=== PATIENT | female | born 1945 | race Caucasian/White ===

== ENCOUNTER 2024-10-26 18:25 | Inpatient (IN) | payer MEDICAID, MEDICARE ==
[~2024-10-26] VITALS: Ht 160 cm; Wt 64.0 kg
[2024-10-26] MEDS ORDERED: ACETAMINOPHEN 325MG TABLET PO ONE (19:45)
[2024-10-26] MEDS ORDERED: KETOROLAC 15MG/ML VIAL IV ONE (19:45)
[2024-10-26 19:58] LABS: HEMATOCRIT 38.4 % (36.0-48.0); MEAN CORPUSCULAR HEMOGLOBIN 29.9 pg (28.0-32.0); MEAN CORPUSCULAR HGB CONC 33.8 g/dL (31.0-37.0); MEAN CORPUSCULAR VOLUME 88.5 fL (81.0-99.0); PLATELET 241 x1000/uL (130-400); RED BLOOD CELL COUNT 4.34 mill/uL (4.2-5.4); RED CELL DISTRIBUTION WIDTH 13.8 % (11.6-14.6); WHITE BLOOD COUNT 8.1 x1000/uL (4.5-11.0)
[2024-10-26 20:10] LABS: CARBON DIOXIDE 24 mEq/L (21-32); CHLORIDE 104 mEq/L (98-107); POTASSIUM 4.3 mEq/L (3.5-5.1); SODIUM 138 mEq/L (136-145)
[2024-10-26 20:11] LABS: CALCIUM 9.4 mg/dL (8.7-10.4)
[2024-10-26 20:15] LABS: CREATININE 0.9 mg/dL (0.6-1.0)
[2024-10-26 20:16] LABS: GLUCOSE 266 mg/dL (70-105); UREA NITROGEN BLOOD 12 mg/dL (9-23)
[2024-10-26 20:17] LABS: ALANINE AMINOTRANSFERASE 18 IU/L (10-49)
[2024-10-26 20:18] LABS: ALBUMIN 4.2 g/dL (3.2-4.8); ASPARTATE AMINOTRANSFERASE 21 IU/L (<34); BILIRUBIN TOTAL 0.4 mg/dL (0.1-1.0); PROTEIN TOTAL 6.9 g/dL (6.0-8.3)
[2024-10-26 20:24] LABS: PARTIAL THROMBOPLASTIN TIME 26.2 sec (23.4-31.0); PROTHROMBIN TIME 10.6 sec (9.6-11.0)
[2024-10-26] MEDS ORDERED: ACETAMINOPHEN 325MG TABLET PO PRN (20:30)
[2024-10-26] MEDS ORDERED: MAGNESIUM/ALUMINUM HYDROXIDE/SIMETHICONE 30ML UDC PO PRN (20:30)
[2024-10-26] MEDS ORDERED: CLONIDINE 0.1MG TABLET PO PRN (20:30)
[2024-10-26] MEDS ORDERED: DOCUSATE SODIUM 100MG CAPSULE PO PRN (20:30)
[2024-10-26] MEDS ORDERED: DEXTROSE 50% WATER 50ML SYRINGE IV PRN (20:30)
[2024-10-26] MEDS ORDERED: IPRATROPIUM/ALBUTEROL 0.5-3(2.5)MG/3ML NEB HHN PRN (20:30)
[2024-10-26] MEDS ORDERED: ONDANSETRON HCL 4MG/2ML INJ IV PRN (20:30)
[2024-10-26] MEDS ORDERED: GUAIFENESIN 200MG/10ML SUGAR FREE UDC PO PRN (20:30)
[2024-10-26] MEDS: KETOROLAC 15MG/ML VIAL IV PRN (21:38)
[2024-10-26] MEDS: BLOOD SUGAR DIAGNOSTIC STRIP TEST SCH (21:48)
[2024-10-26] MEDS: ATORVASTATIN CALCIUM 20MG TABLET PO SCH (21:58)
[2024-10-26] MEDS: FAMOTIDINE 20MG TABLET PO SCH (21:59)
[2024-10-26] MEDS: INSULIN LISPRO 100 UNITS/ML SUBCUT SCH (21:59)
[2024-10-26] MEDS: AMLODIPINE 5MG TABLET PO SCH (21:59)
[2024-10-26 23:25] VITALS: BP 157/66; PULSE 66; RESP 18; TEMP 36.5
[2024-10-27] VITALS: BP 130/58; PULSE 69; RESP 18; TEMP 36.6; O2SAT 99
[2024-10-27 00:40] LABS: CREATINE KINASE 120 IU/L (34-145)
[2024-10-27 00:42] LABS: TROPONIN I HIGH SENSITIVITY < 4 ng/L (3.0-34)
[2024-10-27] MEDS: LIDOCAINE 5% PATCH TOP SCH (00:45)
[2024-10-27] MEDS: TRAMADOL 50MG TABLET PO PRN (00:57)
[2024-10-27 04:00] VITALS: BP 121/54; PULSE 71; RESP 18; TEMP 36.4; O2SAT 96
[2024-10-27 08:00] VITALS: BP 134/51; PULSE 68; RESP 18; TEMP 36.8; O2SAT 97
[2024-10-27 08:04] LABS: BASOPHILS % 0.4 % (0.0-2.0); EOSINOPHILS % 1.6 % (0.0-5.0); HEMATOCRIT. 36.1 % (36.0-48.0); HEMOGLOBIN. 12.4 g/dL (12.0-16.0); MEAN CORPUSCULAR HEMOGLOBIN 30.2 pg (28.0-32.0); MEAN CORPUSCULAR HGB CONC 34.2 g/dL (31.0-37.0); MEAN CORPUSCULAR VOLUME 88.2 fL (81.0-99.0); MEAN PLATELET VOLUME 8.6 fl (7.4-10.4); MONOCYTES % 6.4 % (2.0-8.0); NEUTROPHILS % 64.6 % (40.0-76.0); PLATELET 236 x1000/uL (130-400); RED CELL DISTRIBUTION WIDTH 14.1 % (11.6-14.6); WHITE BLOOD COUNT 7.8 x1000/uL (4.5-11.0)
[2024-10-27 08:10] LABS: CARBON DIOXIDE 25 mEq/L (21-32); CHLORIDE 104 mEq/L (98-107); POTASSIUM 3.8 mEq/L (3.5-5.1); SODIUM 139 mEq/L (136-145)
[2024-10-27 08:16] LABS: CREATININE 0.7 mg/dL (0.6-1.0); GLUCOSE 272 mg/dL (70-105)
[2024-10-27 08:17] LABS: CREATINE KINASE 107 IU/L (34-145); LDL CHOLESTEROL 32 mg/dL (5-100); TRIGLYCERIDE 146 mg/dL (0-150); UREA NITROGEN BLOOD 14 mg/dL (9-23)
[2024-10-27 08:18] LABS: CHOLESTEROL 100 mg/dL (<200); HDL CHOLESTEROL 50 mg/dL (>65)
[2024-10-27 08:49] LABS: TROPONIN I HIGH SENSITIVITY < 4 ng/L (3.0-34)
[2024-10-27 08:50] LABS: T4 FREE 1.15 ng/dL (0.89-1.76)
[2024-10-27 08:51] LABS: THYROID STIMULATING HORMONE 1.17 uIU/mL (0.55-4.78)
[2024-10-27 12:00] VITALS: BP 130/62; PULSE 70; RESP 18; TEMP 36.4; O2SAT 99
[2024-10-27 16:00] VITALS: BP 126/57; PULSE 67; RESP 18; TEMP 36.4; O2SAT 99
[2024-10-27 20:00] VITALS: BP 105/45; PULSE 81; RESP 20; TEMP 36.2; O2SAT 98
[2024-10-27] MEDS: INSULIN GLARGINE 100 UNITS/ML SUBCUT SCH (22:14)
[2024-10-28] VITALS: BP 101/42; PULSE 75; RESP 19; TEMP 36; O2SAT 99
[2024-10-28 04:00] VITALS: BP 107/42; PULSE 72; RESP 18; TEMP 36; O2SAT 98
[2024-10-28 08:00] VITALS: BP 118/73; PULSE 68; RESP 16; TEMP 36.6; O2SAT 95
[2024-10-28] MEDS ORDERED: INSU100I24 SQ (09:12)
[2024-10-28] MEDS ORDERED: ATOR20TA PO (09:12)
[2024-10-28] MEDS ORDERED: LIDO700A30 TOP (09:12)
[2024-10-28] MEDS ORDERED: TRAM50TA3 PO (09:12)
[2024-10-28] MEDS ORDERED: AMLO5TAB88 PO (09:12)
[2024-10-28] MEDS ORDERED: METF-1149 PO (09:12)
[2024-10-28 12:00] VITALS: BP 115/53; PULSE 73; RESP 16; TEMP 36.9; O2SAT 95
[2024-10-28 16:00] VITALS: BP 119/45; PULSE 81; RESP 18; TEMP 37.1; O2SAT 97
[2024-10-28] MEDS ORDERED: MORPHINE SULFATE 4 MG/ML INJ (FOR IV/IM USE) IV SCH (17:30)
[2024-10-28 20:00] VITALS: BP 121/36; PULSE 84; RESP 19; TEMP 36.9; O2SAT 84; O2SAT 95
[2024-10-28] MEDS: INSULIN GLARGINE 100 UNITS/ML SUBCUT SCH (22:19)
[2024-10-29] VITALS: BP 115/45; PULSE 91; RESP 18; TEMP 36.6; O2SAT 95
[2024-10-29 04:00] VITALS: BP 111/36; PULSE 85; RESP 17; TEMP 36.7; O2SAT 96
[2024-10-29 08:00] VITALS: BP 93/35; PULSE 88; RESP 18; TEMP 37.2; O2SAT 95
[2024-10-29 08:24] LABS: HEMATOCRIT 34.8 % (36.0-48.0); HEMOGLOBIN 11.7 g/dL (12.0-16.0); MEAN CORPUSCULAR HEMOGLOBIN 29.7 pg (28.0-32.0); MEAN CORPUSCULAR HGB CONC 33.6 g/dL (31.0-37.0); MEAN CORPUSCULAR VOLUME 88.4 fL (81.0-99.0); PLATELET 217 x1000/uL (130-400); RED BLOOD CELL COUNT 3.94 mill/uL (4.2-5.4); RED CELL DISTRIBUTION WIDTH 14.3 % (11.6-14.6); WHITE BLOOD COUNT 11.2 x1000/uL (4.5-11.0)
[2024-10-29 08:34] LABS: CALCIUM 8.8 mg/dL (8.7-10.4); CHLORIDE 102 mEq/L (98-107); POTASSIUM 3.9 mEq/L (3.5-5.1); SODIUM 136 mEq/L (136-145)
[2024-10-29 08:35] LABS: CARBON DIOXIDE 25 mEq/L (21-32)
[2024-10-29 08:40] LABS: CREATININE 0.6 mg/dL (0.6-1.0); GLUCOSE 190 mg/dL (70-105); UREA NITROGEN BLOOD 11 mg/dL (9-23)
[2024-10-29 08:42] LABS: PHOSPHORUS 3.6 mg/dL (2.5-4.9)
[2024-10-29] MEDS ORDERED: CELE-116 PO (11:12)
[2024-10-29 12:00] VITALS: BP 105/38; PULSE 82; RESP 18; TEMP 37.1; O2SAT 97
[2024-10-29] MEDS ORDERED: COLCHICINE 0.6MG TABLET PO ONE (12:15)
[2024-10-29 12:25] VITALS: RESP 20
[2024-10-29] MEDS: LIDOCAINE 5% PATCH TOP ONE (12:25)
[2024-10-29] MEDS: SODIUM CHLORIDE 0.9% 500 ML IV ONE (12:46)
[2024-10-29] MEDS: LIDOCAINE 5% PATCH TOP SCH (14:00)
[2024-10-29] MEDS: COLCHICINE 0.6MG TABLET PO NR (14:00)
[2024-10-29 14:03] VITALS: BP 119/42; PULSE 82; TEMP 98.8; O2SAT 97
[2024-10-29] MEDS ORDERED: TRAM50TA3 PO (15:24)
== END 2024-10-29 15:43 | disposition home or self-care (01) | DRG 552 ==
LOC: ER 18:25 → EDBEDREQ 20:01 → EDBEDREQTM 20:01 → ENRESERV 20:52 → 8EST 21:03
PROVIDERS: ADMIT Internal Medicine; ATTEND Internal Medicine
DX: M48.061 Spinal stenosis, lumbar region without neurogenic claudication (principal); M25.551 Pain in right hip; M16.0 Bilateral primary osteoarthritis of hip; M48.04 Spinal stenosis, thoracic region; E11.65 Type 2 diabetes mellitus with hyperglycemia; I10 Essential (primary) hypertension; M47.816 Spondylosis without myelopathy or radiculopathy, lumbar region; E78.5 Hyperlipidemia, unspecified; M43.16 Spondylolisthesis, lumbar region; Z79.82 Long term (current) use of aspirin
CPT/HCPCS: 36415; 72100; 72148; 72192; 73502; 73630; 80048; 80053; 80061; 82550; 82962; 83036; 83735; 84100; 84439; 84443; 84484; 84550; 85025; 85027; 93970; 97116; 97162; 97166; 97535; 99285; A4606; J1815; J1885